=== PATIENT | female | born 1985 | race Caucasian/White ===

== ENCOUNTER 2016-06-27 21:36 | Inpatient (IN) | payer OTHER ==
[2016-06-27 23:09] LABS: HEMOGLOBIN 11.1 gm/dl (12.3-15.3); RED BLOOD COUNT 3.54 M/UL (4.00-5.10); WHITE BLOOD COUNT 18.4 K/UL (4.5-11.0)
[2016-06-29 02:38] LABS: HEMOGLOBIN 10.4 gm/dl (12.3-15.3); RED BLOOD COUNT 3.38 M/UL (4.00-5.10); WHITE BLOOD COUNT 14.7 K/UL (4.5-11.0)
[2016-06-29] MEDS ORDERED: NORCO 5-325 TA1 EACH PO (11:52)
== END 2016-06-29 12:15 | disposition home or self-care (01) | DRG 774 ==
LOC: GENOP 21:36 → ER1 21:36 → EDSTATUS 21:54 → OB 23:05
PROVIDERS: ADMIT Obstetrics & Gynecology
PROC: 10E0XZZ Delivery of Products of Conception, External Approach (ICD-10-PCS; principal; 2016-06-28)
PROC: 0U7C7ZZ Dilation of Cervix, Via Natural or Artificial Opening (ICD-10-PCS; 2016-06-28)
DX: O76 Abnormality in fetal heart rate and rhythm complicating labor and delivery (principal); O98.413 Viral hepatitis complicating pregnancy, third trimester; O99.323 Drug use complicating pregnancy, third trimester; Z37.0 Single live birth; Z3A.38 38 weeks gestation of pregnancy; O99.330 Smoking (tobacco) complicating pregnancy, unspecified trimester; B19.20 Unspecified viral hepatitis C without hepatic coma; K02.9 Dental caries, unspecified; O09.33 Supervision of pregnancy with insufficient antenatal care, third trimester
CPT/HCPCS: 36415; 80307; 81001; 82800; 85025; 90707; 90715; G0378; J2590; J3430; J7120

== ENCOUNTER 2020-05-17 09:11 | Emergency (ER) | payer OTHER ==
[~2020-05-17 09:11] MED LIST: NORCO 5-325 TA1 EACH PO
[2020-05-17] MEDS ORDERED: IBUPROFEN600 MG PO (09:53)
== END 2020-05-17 10:12 | disposition home or self-care (01) ==
LOC: ER1 09:11
DX: S62.617A Displaced fracture of proximal phalanx of left little finger, initial encounter for closed fracture (principal); F17.210 Nicotine dependence, cigarettes, uncomplicated; W23.0XXA Caught, crushed, jammed, or pinched between moving objects, initial encounter; Y92.828 Other wilderness area as the place of occurrence of the external cause
CPT/HCPCS: 29130; 73130; 99283